=== PATIENT | female | born 1990 | race Caucasian/White ===

== ENCOUNTER 2020-07-06 05:14 | Emergency (ER) | payer OTHER | END 2020-07-06 07:30 | disposition left against medical advice (07) | LOC: ER1 05:14 | DX: J02.9 Acute pharyngitis, unspecified (principal); R50.9 Fever, unspecified; M79.10 Myalgia, unspecified site; Z53.21 Procedure and treatment not carried out due to patient leaving prior to being seen by health care provider ==

== ENCOUNTER 2020-07-09 18:41 | Emergency (ER) | payer OTHER ==
[2020-07-09 19:21] LABS: HEMOGLOBIN 13.1 gm/dl (12.3-15.3); RED BLOOD COUNT 5.09 M/UL (4.00-5.10); WHITE BLOOD COUNT 3.5 K/UL (4.5-11.0)
[2020-07-09 19:35] LABS: BUN/CREATININE RATIO 9 (0-10)
[2020-07-09] MEDS ORDERED: FLOVENT 110.088 GM/I INH (21:46)
[2020-07-09] MEDS ORDERED: NASONEX17 GM (21:46)
== END 2020-07-09 22:08 | disposition home or self-care (01) ==
LOC: ER1 18:41
PROVIDERS: Emergency Medicine
DX: U07.1 COVID-19 (principal); J12.82 Pneumonia due to coronavirus disease 2019
CPT/HCPCS: 36415; 80053; 81001; 83605; 83690; 84484; 85025; 85610; 85730; 93005; 99284; Q9967

== ENCOUNTER → 2020-12-30 | Outpatient (CLI) | payer OTHER ==
[~2020-12-30] MED LIST: FLOVENT 110.088 GM/I INH; NASONEX17 GM
== END ==
LOC: US 11:28
DX: R10.11 Right upper quadrant pain (principal); R11.2 Nausea with vomiting, unspecified
CPT/HCPCS: 76705